=== PATIENT | female | born 2000 | race African-American/Black ===

== ENCOUNTER 2021-12-10 17:31 | Emergency (ER) | payer OTHER ==
[~2021-12-10] VITALS: Ht 172.7 cm; Wt 69.0 kg
[2021-12-10 17:37] VITALS: BP 133/82
[2021-12-10] MEDS ORDERED: FLUORESCEIN SODIUM 1MG/STRIP LEFTEYE ONE (17:45)
== END 2021-12-10 17:44 | disposition left against medical advice (07) ==
LOC: ER 17:31
DX: S09.8XXA Other specified injuries of head, initial encounter (principal); S05.8X2A Other injuries of left eye and orbit, initial encounter; R56.9 Unspecified convulsions; Y08.89XA Assault by other specified means, initial encounter; Y93.89 Activity, other specified; Y92.89 Other specified places as the place of occurrence of the external cause
CPT/HCPCS: 99283